=== PATIENT | male | born 1950 | race Caucasian/White ===

== ENCOUNTER 2022-12-16 08:28 | Outpatient (CLI) | payer OTHER | END 2022-12-16 08:50 | disposition home or self-care (01) | LOC: TOM 08:28 | PROVIDERS: ATTEND General Practice | DX: R07.89 Other chest pain (principal); R91.1 Solitary pulmonary nodule; R33.9 Retention of urine, unspecified; R31.1 Benign essential microscopic hematuria | CPT/HCPCS: 71260; 76856; Q9965 ==

== ENCOUNTER 2023-01-29 14:27 | Outpatient (CLI) | payer OTHER | END 2023-01-29 14:35 | disposition home or self-care (01) | LOC: MRI 14:27 | DX: S83.231A Complex tear of medial meniscus, current injury, right knee, initial encounter (principal); M17.0 Bilateral primary osteoarthritis of knee | CPT/HCPCS: 73718 ==

== ENCOUNTER 2023-02-09 08:40 | Outpatient (CLI) | payer OTHER | END 2023-02-09 08:44 | disposition home or self-care (01) | LOC: NUCLEAR 08:40 | PROVIDERS: ATTEND Urology | DX: I82.501 Chronic embolism and thrombosis of unspecified deep veins of right lower extremity (principal) ==

== ENCOUNTER 2023-03-15 11:05 | Inpatient (IN) | payer OTHER ==
[~2023-03-15] VITALS: Ht 172.7 cm; Wt 79.4 kg
[2023-03-16] MEDS ORDERED: BRIM (09:48)
[2023-03-19] MEDS ORDERED: LATANOPROST2.5 ML (09:39)
[2023-03-19] MEDS ORDERED: BRIMONIDINE TART5 ML (09:41)
== END 2023-03-20 12:14 | disposition home or self-care (01) | DRG 714 ==
LOC: O/R 03-19 06:00 → SURG 03-19 06:00
PROVIDERS: ADMIT Urology; ATTEND Urology
PROC: 0VT08ZZ Resection of Prostate, Via Natural or Artificial Opening Endoscopic (ICD-10-PCS; principal; 2023-03-19 07:00)
DX: N40.1 Benign prostatic hyperplasia with lower urinary tract symptoms (principal); R33.8 Other retention of urine

== ENCOUNTER 2023-05-24 14:22 | Outpatient (CLI) | payer OTHER ==
[~2023-05-24 14:22] MED LIST: BRIM; BRIMONIDINE TART5 ML; LATANOPROST2.5 ML
== END 2023-05-24 14:24 | disposition home or self-care (01) ==
LOC: LAB 14:22
PROVIDERS: ATTEND Urology
DX: N30.00 Acute cystitis without hematuria (principal)

== ENCOUNTER 2023-07-15 08:18 | Outpatient (CLI) | payer OTHER | END 2023-07-15 08:28 | disposition home or self-care (01) | LOC: SONOGRAMA 08:18 | DX: K76.0 Fatty (change of) liver, not elsewhere classified (principal) ==

== ENCOUNTER 2023-07-28 10:55 | Outpatient (CLI) | payer OTHER ==
[2023-07-28 11:50] LABS: PH,URINE 5.5 (5.0-8.0); URINE APPEARANCE Clear; URINE BILIRRUBIN Negative (NEGATIVE); URINE BLOOD Negative; URINE COLOR Yellow; URINE GLUCOSE Negative (NEGATIVE); URINE LEUKOCYTE Negative; URINE NITRATE Negative; URINE PROTEIN Negative (NEGATIVE); URINE UROBILINOGEN 0.2 E.U./dl
[2023-07-28 11:53] LABS: URINE BACTERIA 8.8 uL (0.0-1933); URINE RBC 4.8 uL (0.0-20.8); URINE WBC 4.9 uL (0.0-23.2)
== END 2023-07-28 10:56 | disposition home or self-care (01) ==
LOC: LAB 10:55
PROVIDERS: ATTEND Urology
DX: N30.00 Acute cystitis without hematuria (principal)